=== PATIENT | female | born 1980 | race Caucasian/White ===

== ENCOUNTER 2025-06-22 13:36 | Emergency (ER) | payer SELFPAY ==
[~2025-06-22] VITALS: Ht 152.4 cm; Wt 91.0 kg
[2025-06-22 13:38] VITALS: O2SAT 97
[2025-06-22] MEDS ORDERED: AMOX1TAB16 MT (17:19)
[2025-06-22] MEDS ORDERED: ACET-2708 MT (17:19)
[2025-06-22 17:40] VITALS: BP 144/84; PULSE 86; RESP 17; TEMP 36.5; O2SAT 98
== END 2025-06-22 17:50 | disposition home or self-care (01) ==
LOC: ER 13:36
DX: S61.250A Open bite of right index finger without damage to nail, initial encounter (principal); E11.9 Type 2 diabetes mellitus without complications; W54.0XXA Bitten by dog, initial encounter; Y93.89 Activity, other specified; Y92.89 Other specified places as the place of occurrence of the external cause; Y99.8 Other external cause status
CPT/HCPCS: 73140; 99283